=== PATIENT | female | born 1995 ===

== ENCOUNTER 2019-07-07 17:47 | Outpatient (CLI) | payer OTHER ==
[~2019-07-07] VITALS: Ht 160 cm; Wt 77.2 kg
--- NOTE | 2019-07-07 17:58 | NUR ---
ADRIANA HAUSER presented to unit via ambulatory from ED, accompanied by significant other , with c/o CONTRACTIONS. ADRIANA HAUSER weighed, gowned, voided, and to bed. EFHM and TOCO applied, VS taken. ADRIANA HAUSER oriented to bed controls, call light, TV, heat, and A/C controls.
[2019-07-07 18:15] VITALS: BP 120/63
--- NOTE | 2019-07-07 19:10 | NUR ---
Dr Yanez notified of this G 1 at 30.6 weeks for complaints of contractions. care received in [place], [place]. Informed physician of uterine irritability with no contractions. pattern reassuring with baseline of 135-140 with accelerations. Orders received to check cervix and results of UA and if reactive strip may be discharge. Report given to Prasanth Pollack RN.
[2019-07-07 19:40] LABS: BILIRUBIN,URINE NEGATIVE (NEGATIVE); CLARITY,URINE CLEAR; COLOR,URINE YELLOW; GLUCOSE, URINE (UA) 2+ (NEGATIVE); KETONES,URINE NEGATIVE (NEGATIVE); LEUKOCYTE ESTERASE ,URINE NEGATIVE (NEGATIVE); NITRITE,URINE NEGATIVE (NEGATIVE); PH,URINE 7 (5-9); PROTEIN,URINE NEGATIVE (NEGATIVE); UROBILINOGEN,URINE NORMAL (NORMAL)
[2019-07-07 19:47] LABS: BACTERIA,URINE TRACE /HPF; SQUAMOUS EPITHELIAL CELL,UR 0-2 /HPF
[2019-07-07] MEDS ORDERED: PREN1TAB19 PO (19:54)
--- NOTE | 2019-07-07 20:00 | NUR ---
D/C instructions given & explained, pt. verbalized understanding & signed, copy of D/C instructions to pt. Encouraged pt. to contact her own doctor & the importance of following up with her own doctor for problems, etc. Pt. left [facility] ambulatory on own, to home via private vehicle.
--- NOTE | 2019-07-08 08:21 | Physician Query-Final Dx ---
FARZANEH BYERS 07/08/19 0821: Clinic Account Progress/Dx Physician Query: Please give diagnosis Please include # weeks gestation Date of Service Jul 07, 2019 at 17:47 MEGAN ROSS DO 07/10/19 0801: Clinic Account Progress/Dx DIAGNOSIS: Diagnosis 31 week IUP indigestion/abdominal pain FARZANEH BYERS Jul 08, 2019 08:21 MEGAN ROSS DO Jul 10, 2019 08:01
== END 2019-07-07 20:00 | disposition home or self-care (01) ==
LOC: WSo 17:47 → LDRP 17:47 → WSo 20:00
PROVIDERS: ATTEND Obstetrics & Gynecology
DX: O62.9 Abnormality of forces of labor, unspecified (principal); Z3A.30 30 weeks gestation of pregnancy
CPT/HCPCS: 81000; 99213

== ENCOUNTER 2022-09-20 17:16 | Outpatient (CLI) | payer OTHER, MEDICAID ==
[~2022-09-20] VITALS: Ht 157.5 cm; Wt 77.1 kg
[~2022-09-20 17:16] MED LIST: PREN1TAB19 PO
[2022-09-20 18:22] LABS: BILIRUBIN,URINE NEGATIVE (NEGATIVE); CLARITY,URINE CLEAR; COLOR,URINE YELLOW; GLUCOSE, URINE (UA) NEGATIVE (NEGATIVE); KETONES,URINE NEGATIVE (NEGATIVE); LEUKOCYTE ESTERASE ,URINE 2+ (NEGATIVE); NITRITE,URINE NEGATIVE (NEGATIVE); PH,URINE 6.5 (5-9); PROTEIN,URINE NEGATIVE (NEGATIVE)
[2022-09-20 18:33] VITALS: BP 117/68
[2022-09-20 18:33] LABS: BACTERIA,URINE TRACE /HPF; SQUAMOUS EPITHELIAL CELL,UR 0-2 /HPF; WBC,URINE RARE /HPF
--- NOTE | 2022-09-24 08:37 | Physician Query-Final Dx ---
09/24/22 0837: Clinic Account Progress/Dx Physician Query: Please give diagnosis Please include # weeks gestation Date of Service Sep 20, 2022 at 17:16 MONICA JIMENEZ MD 09/25/22 0214: Clinic Account Progress/Dx DIAGNOSIS: Diagnosis Vaginal discharge in 26 weeks gestation Second trimester ,OctSep 24, 2022 08:37 MONICA JIMENEZ MD Sep 25, 2022 02:14
== END 2022-09-20 18:55 | disposition home or self-care (01) ==
LOC: WSo 17:16 → LDRP 17:16 → WSo 18:55
PROVIDERS: ATTEND Family Medicine
DX: O42.912 Preterm premature rupture of membranes, unspecified as to length of time between rupture and onset of labor, second trimester (principal); Z3A.26 26 weeks gestation of pregnancy
CPT/HCPCS: 81000; 87070; 87077; 87205; 87210; G0463; 99214

== ENCOUNTER 2022-12-11 05:27 | Outpatient (CLI) | payer OTHER, MEDICAID ==
[~2022-12-11] VITALS: Ht 157.5 cm; Wt 84.1 kg
[2022-12-12] MEDS ORDERED: FERR325T24 PO (14:56)
== END 2022-12-12 16:39 | disposition home or self-care (01) ==
LOC: PREOP 05:27
PROVIDERS: ATTEND Obstetrics & Gynecology
DX: Z01.818 Encounter for other preprocedural examination (principal)

== ENCOUNTER 2022-12-18 05:42 | Inpatient (IN) | payer MEDICAID, OTHER ==
[2022-12-18] VITALS (8 sets, daily range): BP systolic 102–119; BP diastolic 51–90
[~2022-12-18] VITALS: Ht 157.5 cm; Wt 85.4 kg
[~2022-12-18 05:42] MED LIST changes: +FERR325T24 PO
[2022-12-18] MEDS ORDERED: ceFAZolin INJECTION 2,000 MG in NS (IVPB) 50 ML IV ONE (06:00)
--- NOTE | 2022-12-18 06:02 | History & Physical-OB/GYN ---
DANNIE GONZALEZ 12/18/22 0602: OB - Chief Complaint & HPI Date/Time Date of Admission: Date of Admission: Dec 18, 2022 at 05:42 Date seen by a Provider: Dec 18, 2022 Time Seen by a Provider: 06:15 Chief Complaint/History OB-Reason for Admission/Chief: Section Hx : 2 Hx Para: 1 Expected Date of Delivery: Dec 25, 2022 Gestational Age in Weeks: 39 Gestational Age in Days: 0 Indication for : desires repeat History of Labs O+ Antibody Neg HBsAg NR HIV NR VDRL NR RI GC Neg GBS Pos Allergies and Home Medications Allergies Coded Allergies: No Known Drug Allergies (Unverified , 12/12/22) Patient Home Medication List Home Medication List Reviewed: Yes Ferrous Sulfate (Ferosul) 325 Mg (65 Mg Iron) Tablet, 325 MG PO DAILY, (Reported) Entered as Reported by: Diana Hodges on 12/12/22 5926 Last Action: Reviewed Vit/Iron Fumarate/FA ( Vitamins Tablet) 1 Each Tablet, 1 EACH PO DAILY, (Reported) Entered as Reported by: MEAGHAN GUTIERRES on 07/07/191953 Last Action: Reviewed OB - History Hx of Present Care: Yes Ultrasounds: Normal mid trimester US Obstetrical Complications: None Medical Complications: None Information Induced Hypertension: No Maternal Gestational Diabetes: No Hemorrhage: No Obstetrical History Hx : 2 Hx Para: 1 Hx # Term Pregnancies: 1 Hx # Pregnancies: 0 Number of Living Children: 1 Hx Termination: No Hx Multiple Gestation: No Hx Ectopic : No Hx Stillbirth: No Hx Complication: No Hx Induced Hypertens: No Hx Maternal Gestational Diabet: No Hx Hemorrhage: No Delivery History Hx Dystocia: No Hx Forceps Assisted Delivery: No Hx Vacuum Extraction Assisted: No Hx Placenta Abnormality: No Hx Distress: No Hx Large For Gestational Age I: No Hx Small for Gestational Age I: No Hx Section: Yes Hx Vaginal Delivery Post C-Sec: No Hx Blood Disorders: No Adverse Rxn to Tranfusion: No Patient Past Medical History [place] Social History/Family History Alcohol Use: Denies Use Recreational Drug Use: No Smoking Cessation: Former smoker (Quit 7 years ago) 2nd Hand Smoke Exposure: Yes Immunizations Hepatitis A: Yes Hepatitis B: Yes Tetanus Booster (TDap): Less than 5yrs Rubella: immune RPR/VDRL: Negative GBS Status: Positive HBsAG: Negative OB - Admission Exam Physical Exam HEENT: PERRLA Heart: Rhythm Normal Lungs: Clear Abdomen: Gravid Extremities: Edema Reflexes: Normal OB - Assessment/Plan/Diagnosis Assessment Assessment: section Admission Dx at 39 weeks 0 days gestational age Presents for repeat GBS Pos Otherwise uncomplicated Admission Status: Inpatient Order (span 2 midnights) Reason for Inpatient Admission: Repeat at 39 weeks 0 days Plan Plan: Section EDUARDO YANEZ DO 12/18/22 0720: Allergies and Home Medications Allergies Coded Allergies: No Known Drug Allergies (Unverified , 12/12/22) Patient Home Medication List Ferrous Sulfate (Ferosul) 325 Mg (65 Mg Iron) Tablet, 325 MG PO DAILY, (Reported) Entered as Reported by: Diana Hodges on 12/12/22 8356 Last Action: Reviewed Vit/Iron Fumarate/FA ( Vitamins Tablet) 1 Each Tablet, 1 EACH PO DAILY, (Reported) Entered as Reported by: MEAGHAN GUTIERRES on 07/07/191953 Last Action: Reviewed Supervisory-Addendum Brief Verification & Attestation Participated in pt care: history Personally performed: exam Care discussed with: Medical Student Procedures: n/a Procedure type: I&D Results interpretation: Verified all documentation Verification and Attestation of Medical Student E/M Service A medical student performed and documented this service in my presence. I reviewed and verified all information documented by the medical student and made modifications to such information, when appropriate. I personally performed the physical exam and medical decision making. Eduardo Yanez Dec 18, 2022,07:20 DANNIE GONZALEZ Dec 18, 2022 06:02 EDUARDO YANEZ DO Dec 18, 2022 07:20
[2022-12-18 06:12] LABS: BILIRUBIN,URINE NEGATIVE (NEGATIVE); CLARITY,URINE CLEAR; COLOR,URINE YELLOW; GLUCOSE, URINE (UA) NEGATIVE (NEGATIVE); KETONES,URINE 1+ (NEGATIVE); LEUKOCYTE ESTERASE ,URINE 1+ (NEGATIVE); NITRITE,URINE NEGATIVE (NEGATIVE); PROTEIN,URINE TRACE (NEGATIVE)
[2022-12-18 06:14] LABS: BASOPHILS % (AUTO) 0 % (0-10); EOSINOPHILS # (AUTO) 0.2 10^3/uL (0.0-0.3); EOSINOPHILS % (AUTO) 2 % (0-10); HEMATOCRIT 30 % (35-52); HEMOGLOBIN 9.7 g/dL (11.5-16.0); LYMPHOCYTES # (AUTO) 1.7 10^3/uL (1.0-4.0); LYMPHOCYTES % (AUTO) 18 % (12-44); MEAN CORPUSCULAR HEMOGLOBIN 26 pg (25-34); MEAN CORPUSCULAR HGB CONC 32 g/dL (32-36); MEAN CORPUSCULAR VOLUME 79 fL (80-99); MEAN PLATELET VOLUME 10.1 fL (9.0-12.2); MONOCYTES # (AUTO) 0.8 10^3/uL (0.0-1.0); MONOCYTES % (AUTO) 8 % (0-12); NEUTROPHILS # (AUTO) 6.8 10^3/uL (1.8-7.8); NEUTROPHILS % (AUTO) 71 % (42-75); PLATELET COUNT 271 10^3/uL (130-400); WHITE BLOOD COUNT 9.7 10^3/uL (4.3-11.0)
[2022-12-18] MEDS ORDERED: CITRIC ACID/SOB CIT (BICITRA) 30 ML UDC PO ONE (06:15)
[2022-12-18] MEDS ORDERED: METOCLOPRAMIDE INJ 10 MG/2 ML (REGLAN) IV ONE (06:15)
[2022-12-18] MEDS ORDERED: LACTATED RINGERS 1,000 ML IV PRN ×2 (06:15)
[2022-12-18] MEDS ORDERED: FAMOTIDINE 20MG/2ML IV (PEPCID) IV ONE (06:15)
[2022-12-18 06:24] LABS: BACTERIA,URINE FEW /HPF
[2022-12-18] MEDS ORDERED: ROPIVACAINE 5MG/ML 30ML VIAL ONE (07:14)
[2022-12-18] MEDS ORDERED: OXYTOCIN PRE-MIX DRIP 1,000 ML IV ONE (07:14)
[2022-12-18] MEDS ORDERED: fentaNYL INJ 100 MCG/2 ML AMP ONE (07:14)
[2022-12-18] MEDS ORDERED: MEASLES,MUMPS,RUBELLA 1 EA INJ SC SCH (07:30)
[2022-12-18] MEDS ORDERED: ONDANSETRON 4 MG/2 ML (SDV) Z0FRAN IVP PRN (07:30)
[2022-12-18] MEDS ORDERED: NALOXONE 0.4 MG/ML 1 ML (NARCAN) VIAL IV PRN (07:30)
[2022-12-18] MEDS ORDERED: TETANUS,DIPTH,PERTUSS P/F (BOOSTRIX) 0.5 ML VIAL IM SCH (07:30)
[2022-12-18] MEDS: OXYTOCIN PRE-MIX DRIP 500 ML IV SCH ×2 (09:42→12:57)
[2022-12-18] MEDS: KETOROLAC 30 MG/ML VIAL IV SCH ×3 (11:27→23:00)
--- NOTE | 2022-12-18 12:43 | OPERATIVE REPORT ---
PREOPERATIVE DIAGNOSES: 1. A 27-year-old female with previous section. 2. A 29-week gestation. POSTOPERATIVE DIAGNOSES: 1. A 27-year-old female with previous section. 2. A 29-week gestation. PROCEDURE: Repeat low transverse section. SURGEON: Eduardo Ross DO. FUSION OPERATOR: Dr. Reji Gibson, who was necessary for manipulation and retraction throughout the procedure. ANESTHESIA: Spinal. ESTIMATED BLOOD LOSS: 700 mL URINE OUTPUT: 200 mL clear at the end of the procedure. FLUIDS: 1400 mL lactated Ringer's solution. FINDINGS: A live female , weighing 8 pounds [ ] Apgars of 9 and 9. Grossly normal appearing uterus, bilateral fallopian tubes and ovaries. SPECIMEN SENT: None. INDICATIONS FOR PROCEDURE: This 27-year-old female is the patient who is sent to Dr. Gibson for care. She ended up coming to me for repeat consultation. I discussed with the patient risks of procedure in the preoperative discussion, the preoperative visit. After all of her questions were answered, consent was obtained. The patient was taken to the operating room. OPERATIVE REPORT IN DETAIL: Once in the operating room, spinal anesthesia was administered and found to be adequate, was placed in supine position with leftward tilt, prepped and draped in normal sterile fashion. Timeout was performed. Anesthesia was tested. I then make a Pfannenstiel skin incision through the previously existing scar using knife and carried down to the underlying fascia using Bovie cautery. The fascial incision extended laterally using Bovie cautery. Superior aspect of fascial incision was then grasped with Luisa clamps, tented up and dissected off the underlying rectus muscle. The inferior aspect of the fascial incision was then grasped with Luisa clamps, tented up and dissected off the underlying rectus muscles. Rectus muscles were dissected down the midline, which exposed the peritoneum, which I entered bluntly and extended using blunt traction. Steven ring retractor was placed in the peritoneal incision, which offers excellent lateral sidewall retraction. I identified the lower uterine segment, was found to be thinned out and make a low transverse incision to the vesicouterine peritoneum and bluntly dissected off the lower uterine segment, creating a bladder flap. I then proceeded with myotomy until membranes were visualized, at which point I extended the uterine incision laterally and superiorly using bandage scissors. Amniotomy was performed using Allis clamp. Clear fluid was noted. The found in vertex presentation. With gentle fundal pressure, the infant's head elevated to the incision where the nares and oropharynx were bulb suctioned. Anterior and posterior shoulders were delivered. was brought to the operative field where cords were doubly clamped and cut and infant was handed off to waiting nurses in attendance. Cord blood was collected. Three-vessel cord intact placenta was delivered spontaneously thereafter. IV Pitocin was initiated to facilitate uterine contraction. Uterine fundus confirmed by manual massage. Uterus was then exteriorized and cleared of all major clots and debris. I then proceeded with closing the uterine incision using 0 Vicryl suture in a running locked fashion. Second layer of imbricating 0 Monocryl was placed. Excellent hemostasis was noted after doing this. I then copiously irrigated the pelvis using normal saline. Once again there was no active bleeding noted from any of my dissection planes. I placed Interceed antiadhesive over my low transverse incision. I removed the Steven ring retractor and then proceeded with closing the peritoneum using 3-0 Vicryl suture in a running fashion. Rectus muscles were reapproximated using 3-0 Vicryl suture in interrupted fashion. The fascia was reapproximated using 0 Vicryl suture in a running fashion. The subcutaneous tissue was reapproximated using 3-0 plain interrupted subcutaneous stitch and skin reapproximated using 4-0 Monocryl running subcuticular. Dermabond was applied to incision, sterile dressing with adhesive white tape. The patient tolerated the procedure well and sent to recovery area in stable condition. Lap and sponge counts were correct at the end of the procedure. Instrument counts correct as well. A 2 grams of Ancef given preoperatively for infection prophylaxis. Job ID: [id number] DocumentID: [id number] Dictated Date: 12/18/2022 08:32:25 Automotive Painter Helper Date: 12/18/2022 12:40:00 Dictated By: EDUARDO ROSS DO
[2022-12-18] MEDS: DOCUSATE SODIUM 100 MG (COLACE) CAP PO SCH ×2 (12:57→19:21)
[2022-12-18] MEDS: HYDROcodone/APAP 5 MG/325 MG (LORTAB) TAB PO PRN ×2 (12:58→19:21)
[2022-12-18] MEDS ORDERED: CATHETER FLUSH 10 ML SYR IV SCH (14:00)
--- NOTE | 2022-12-18 17:44 | Discharge Inst-Women's Service ---
Discharge Inst-Women's Serv Depart Medication/Instructions New, Converted or Re-Newed RX: Transmitted to Pharmacy Final Diagnosis POD 2 RLTCS Problems Reviewed?: Yes Consults/Follow Up Additional Follow Up: Yes Orders/Referrals Dr. Yanez in 7-[address] Gibson in 6 weeks Activity Activity: Activity as Tolerated Driving Instructions: No Driving for 1 Week NO SMOKING: NO SMOKING Nothing Inside Vagina: No Douching, No [place], No Tampons Diet Discharge Diet: No Restrictions Symptoms to Report to : Bleeding Excessive, Pain Increased, Fever Over 101 Degrees F, Vaginal Bleeding Increase, Questions/Concerns For Any Problems or Questions: Contact Your Physician Skin/Wound Care Infection Signs and Symptoms: Increased Redness, Foul Odor of Wound, Increased Drainage, Skin Itchy or Has a Rash, Increased Swelling, Temperature Above 101 F Operative Area Clean and Dry: Keep Incision Clean/Dry Stitches/Kristin/Dermabond: Dermabond, Care of Stitches Bathing Instructions: MEGAN Baez DO Dec 18, 2022 17:44
[2022-12-18] MEDS ORDERED: ACHD5005 PO (17:46)
[2022-12-18] MEDS ORDERED: DOCU100C37 PO (17:46)
[2022-12-18] MEDS ORDERED: IBUP-844 PO (17:46)
[2022-12-18] MEDS ORDERED: SIMETHICONE 80 MG (MYLICON) CHEW ONE (23:03)
[2022-12-18] MEDS ORDERED: IBUPROFEN 600 MG (MOTRIN) TAB PO ONE (23:04)
[2022-12-18] MEDS: SIMETHICONE 80 MG (MYLICON) CHEW PO SCH (23:06)
[2022-12-18] MEDS: IBUPROFEN 600 MG (MOTRIN) TAB PO SCH (23:06)
[2022-12-19] MEDS: HYDROcodone/APAP 5 MG/325 MG (LORTAB) TAB PO PRN ×4 (01:03→19:33)
[2022-12-19 01:06] VITALS: BP 110/59
[2022-12-19 04:39] LABS: BASOPHILS % (AUTO) 0 % (0-10); EOSINOPHILS # (AUTO) 0.2 10^3/uL (0.0-0.3); EOSINOPHILS % (AUTO) 2 % (0-10); HEMATOCRIT 24 % (35-52); HEMOGLOBIN 7.7 g/dL (11.5-16.0); LYMPHOCYTES # (AUTO) 1.7 10^3/uL (1.0-4.0); LYMPHOCYTES % (AUTO) 17 % (12-44); MEAN CORPUSCULAR HEMOGLOBIN 25 pg (25-34); MEAN CORPUSCULAR HGB CONC 32 g/dL (32-36); MEAN CORPUSCULAR VOLUME 80 fL (80-99); MEAN PLATELET VOLUME 10.7 fL (9.0-12.2); MONOCYTES # (AUTO) 0.7 10^3/uL (0.0-1.0); MONOCYTES % (AUTO) 7 % (0-12); NEUTROPHILS # (AUTO) 7.5 10^3/uL (1.8-7.8); NEUTROPHILS % (AUTO) 74 % (42-75); PLATELET COUNT 188 10^3/uL (130-400); WHITE BLOOD COUNT 10.1 10^3/uL (4.3-11.0)
[2022-12-19] MEDS ORDERED: IBUPROFEN 600 MG (MOTRIN) TAB PO ONE (04:55)
[2022-12-19] MEDS: IBUPROFEN 600 MG (MOTRIN) TAB PO SCH ×4 (05:59→23:26)
[2022-12-19 06:11] VITALS: BP 103/61
--- NOTE | 2022-12-19 06:53 | Postpartum Progress Note ---
Note Note Day # 1 Subjective: Patient is without complaints. Ambulating, voiding. Tolerating a regular diet without nausea or vomiting. Normal lochia. Pain is well controlled with oral pain medications. Breast feeding. Objective: Patient lying in bed at time of evaluation, no signs of discomfort. Physical Exam: General - Alert and oriented, no apparent distress Abdomen - Soft, appropriately tender to palpation, non-distended, fundus firm at umbilicus Extremities - no edema, negative Brock's bilaterally Incision c/d/i Assessment: POD 1, s/p RLTCS Acute blood loss anemia Plan: Routine care. Encourage breast feeding. Encourage ambulation. Ferrous sulfate supplementation. Plan for discharge tomorrow. Vitals - Labs Vital Signs - I&O Vital Signs Date Time Temp Pulse Resp B/P (MAP) Pulse Ox O2 Delivery O2 Flow Rate FiO2 12/19/22 06:11 36.5 70 18 103/61 (75) 98 Room Air 12/19/22 01:06 36.5 74 18 110/59 (76) 99 Room Air 12/18/22 21:37 36.5 69 18 108/53 (71) 100 Room Air 12/18/22 16:57 36.7 87 18 102/58 (73) 99 Room Air 12/18/22 12:57 36.5 66 18 102/57 (72) 100 Room Air 12/18/22 09:30 Room Air 12/18/22 09:30 36.1 18 119/90 (100) 98 Room Air 12/18/22 09:15 36.0 18 108/58 (75) 98 Room Air 12/18/22 09:15 Room Air 12/18/22 08:59 Room Air 12/18/22 08:59 36.0 16 110/69 (83) 98 Room Air 12/18/22 08:39 Room Air 12/18/22 08:39 36.1 73 16 110/51 (70) 98 Room Air 12/18/22 08:39 36.1 16 110/51 (70) 98 Room Air I & O 12/19/22 07:00 Intake Total 1600 ml Output Total 2500 ml Balance -900 ml Labs Laboratory Tests 12/19/22 04:13: White Blood Count 10.1, Red Blood Count 3.05L, Hemoglobin 7.7#L, Hematocrit 24L, Mean Corpuscular Volume 80, Mean Corpuscular Hemoglobin 25, Mean Corpuscular Hemoglobin Concent 32, Red Cell Distribution Width 16.5H, Platelet Count 188, Mean Platelet Volume 10.7, Immature Granulocyte % (Auto) 1, Neutrophils (%) ( Auto) 74, Lymphocytes (%) (Auto) 17, Monocytes (%) (Auto) 7, Eosinophils (%) (Auto) 2, Basophils (%) (Auto) 0, Neutrophils # (Auto) 7.5, Lymphocytes # (Auto) 1.7, Monocytes # (Auto) 0.7, Eosinophils # (Auto) 0.2, Basophils # (Auto) 0.0, Immature Granulocyte # (Auto) 0.1 Microbiology 12/18/22 MRSA Screen - Final, Complete MRSA not isolated DANNIE GONZALEZ Dec 19, 2022 06:53
[2022-12-19 11:08] VITALS: BP 99/51
[2022-12-19] MEDS: FERROUS SULF 325 MG (IRON) TAB PO SCH ×2 (11:08→18:08)
[2022-12-19] MEDS: DOCUSATE SODIUM 100 MG (COLACE) CAP PO SCH ×2 (11:08→23:25)
[2022-12-19] MEDS: SIMETHICONE 80 MG (MYLICON) CHEW PO SCH ×3 (11:08→23:25)
--- NOTE | 2022-12-19 13:46 | Anesthesia-Regional Post-Op ---
Regional Patient Condition Mental Status: Alert, Oriented x3 Circulation: Same as Pre-Op Headache: Absent Sensation: Full Recovery Motor Block: Absent Post Op Complications Complications None Follow Up Care/Instructions Patient Instructions None needed. Anesthesia/Patient Condition Patient is doing well, no complaints, stable vital signs, no apparent adverse anesthesia problems. No complications reported per nursing. D/C home per [facility] Criteria: Yes HOLLEY BRUCE CRNA Dec 19, 2022 13:46
[2022-12-19 18:09] VITALS: BP 116/58
[2022-12-19 23:18] VITALS: BP 107/56
[2022-12-20] MEDS: IBUPROFEN 600 MG (MOTRIN) TAB PO SCH ×3 (00:04→12:27)
[2022-12-20] MEDS: HYDROcodone/APAP 5 MG/325 MG (LORTAB) TAB PO PRN ×3 (00:46→12:27)
[2022-12-20 05:42] VITALS: BP 104/52
--- NOTE | 2022-12-20 08:20 | Postpartum Progress Note ---
Note Note Day # 2 Subjective: Patient is without complaints. Ambulating, voiding. Tolerating a regular diet without nausea or vomiting. Normal lochia. Pain is well controlled with oral pain medications. Physical Exam: General - Alert and oriented, no apparent distress Abdomen - Soft, appropriately tender to palpation, non-distended, fundus firm at umbilicus; incision c/d/i Extremities - no edema, negative Brock's bilaterally Assessment: Post- day # 2, status post RLTCS Recovering well, hemodynamically stable Acute blood loss anemia Plan: Routine care. Encourage breast feeding. Encourage ambulation. Ferrous sulfate supplementation. Plan for discharge today Vitals - Labs Vital Signs - I&O Vital Signs Date Time Temp Pulse Resp B/P (MAP) Pulse Ox O2 Delivery O2 Flow Rate FiO2 12/20/22 05:42 36.7 79 20 104/52 (69) 98 Room Air 12/19/22 23:18 36.8 74 18 107/56 (73) 99 Room Air 12/19/22 18:09 36.5 79 18 116/58 (77) 99 Room Air 12/19/22 11:08 36.4 74 18 99/51 (67) 99 Room Air I & O 12/20/22 07:00 Intake Total 1200 ml Output Total 400 ml Balance 800 ml Labs Microbiology 12/18/22 MRSA Screen - Final, Complete MRSA not isolated 12/18/22 Urine Culture - Preliminary, Resulted Lactobacillus species JUDI NUNES APRN Dec 20, 2022 08:20
[2022-12-20] MEDS: SIMETHICONE 80 MG (MYLICON) CHEW PO SCH ×2 (09:56→12:27)
[2022-12-20] MEDS: DOCUSATE SODIUM 100 MG (COLACE) CAP PO SCH (09:56)
[2022-12-20] MEDS: FERROUS SULF 325 MG (IRON) TAB PO SCH (09:56)
[2022-12-20 12:18] VITALS: BP 115/63
== END 2022-12-20 12:35 | disposition home or self-care (01) | DRG 787 ==
LOC: LDRP 05:42
PROVIDERS: ADMIT Obstetrics & Gynecology; ATTEND Obstetrics & Gynecology
PROC: 10D00Z1 Extraction of Products of Conception, Low, Open Approach (ICD-10-PCS; principal; 2022-12-18 07:21)
DX: O34.211 Maternal care for low transverse scar from previous cesarean delivery (principal); D62 Acute posthemorrhagic anemia; Z3A.39 39 weeks gestation of pregnancy; Z37.0 Single live birth; O99.824 Streptococcus B carrier state complicating childbirth; Z87.891 Personal history of nicotine dependence; O90.81 Anemia of the puerperium
CPT/HCPCS: 36415; 81000; 85025; 86850; 86900; 86901; 87081; 87088; 94664